=== PATIENT | female | born 1985 | race African-American/Black ===

== ENCOUNTER 2018-04-06 22:20 | Emergency (ER) | payer OTHER ==
[~2018-04-06 22:20] MED LIST: LIDOCAINE PATCH REMOVAL MC SCH
[2018-04-06 23:03] VITALS: BP 115/62; PULSE 60; TEMP 98.6; BMI 19.2
[2018-04-06] MEDS ORDERED: IBUPROFEN 600 MG TABLET (FP) PO ONE ×2 (23:17→23:32)
[2018-04-06] MEDS ORDERED: LIDOCAINE 5% TOPICAL PATCH TP ONE (23:17)
[2018-04-06] MEDS ORDERED: CYCLOBENZAPRINE HCL 10 MG TABLET (FP) PO ONE (23:18)
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
[2018-04-06] MEDS ORDERED: LIDOCAINE 5% TOPICAL PATCH ONE (23:32)
[2018-04-06] MEDS ORDERED: CYCLOBENZAPRINE HCL 10 MG TABLET (FP) ONE (23:32)
== END 2018-04-07 00:47 | disposition home or self-care (01) ==
LOC: JER 22:20
DX: S16.1XXA Strain of muscle, fascia and tendon at neck level, initial encounter (principal); V49.49XA Driver injured in collision with other motor vehicles in traffic accident, initial encounter; Y92.488 Other paved roadways as the place of occurrence of the external cause; Y99.8 Other external cause status
CPT/HCPCS: 99281-25